=== PATIENT | male | born 1995 | race Caucasian/White ===

== ENCOUNTER 2017-07-02 01:04 | Emergency (ER) | payer MEDICAID ==
[2017-07-02 01:15] VITALS: BP 156/102
[2017-07-02] MEDS ORDERED: Alum Hydrox/Mag Hydrox/Simeth 30 ML, Lidocaine 2% 15 ML PO ONE ×2 (01:23)
--- NOTE | 2017-07-02 01:31 | EDM.PDOC ---
ED HPI GENERAL MEDICAL PROBLEM - General Chief Complaint: Abdominal Pain Stated Complaint: ABDOMINAL PAINS Time Seen by Provider: 07/02/17 01:20 - History of Present Illness INITIAL COMMENTS - FREE TEXT/NARRATIVE: 22-year-old male presents emergency room with abdominal pain. Patient has midepigastric discomfort that is quite severe at this time this is been getting worse over the last week but is really accelerated over the last several days. The patient is a recovering drug addict and has been drinking. He really thinks it's time for him to quit drinking he has not had any drinks today or this last evening. However his abdominal pain is getting worse he says that this pain has been on and off for the last several months but it has really escalated over the last week. He has not vomited any blood he has not had much nausea or vomiting often times however does have sour sensation in the back of his throat and feels like stuff is coming up from the stomach. The patient has not had any black or tarry stools no constipation or diarrhea. He denies fevers or chills Middle Abdomen Pain Score (Numeric/FACES): 5 - Related Data Allergies Allergy/AdvReac Type Severity Reaction Status Date / Time No Known Allergies Allergy Verified 02/03/17 07:18 Home Meds: Home Meds Pantoprazole Sodium [Protonix] 40 mg PO Q24H #30 tablet. 07/02/17 [Rx] Sucralfate [Carafate] 1 gm PO QIDACANDBED #28 tablet 07/02/17 [Rx] ED ROS GENERAL - Review of Systems Review Of Systems: See Below Constitutional: Reports: No Symptoms Respiratory: Reports: No Symptoms Cardiovascular: Reports: No Symptoms GI/Abdominal: Reports: Abdominal Pain. Denies: Black Stool, Bloody Stool, Constipation, Diarrhea, Nausea, Vomiting : Reports: No Symptoms ED EXAM, GI/ABD - Physical Exam Exam: See Below Exam Limited By: No Limitations General Appearance: Alert, No Apparent Distress, Other (The patient appears sober and is very cooperative at this time) Respiratory/Chest: No Respiratory Distress, Lungs Clear, Normal Breath Sounds Cardiovascular: Regular Rate, Rhythm, No Edema, No Murmur GI/Abdominal Exam: Normal Bowel Sounds, Soft, Other (Patient has marked epigastric discomfort no rebound or guarding noted no rigidity) Course - Vital Signs Last Recorded V/S: Last Vital Signs Temp 36.5 C 07/02/17 01:10 Pulse 97 07/02/17 01:10 Resp 18 07/02/17 01:10 BP 156/102 H 07/02/17 01:10 Pulse Ox 99 07/02/17 01:10 - Orders/Labs/Meds Orders: Active Orders 24 hr Category Date Time Status Pantoprazole [ProTONIX] Med 07/02/17 03:16 Once 40 mg PO ONETIME ONE Medication Orders Pantoprazole Sodium (Protonix) 40 mg PO ONETIME ONE Stop: 07/02/17 03:17 Meds: Medications Generic Name Dose Route Start Last Admin Trade Name Freq PRN Reason Stop Dose Admin Pantoprazole Sodium 40 mg 07/02/17 03:16 Protonix PO 07/02/17 03:17 ONETIME ONE Discontinued Medications Generic Name Dose Route Start Last Admin Trade Name Freq PRN Reason Stop Dose Admin Al Hydroxide/Mg Hydroxide 30 0 ml 07/02/17 01:23 07/02/17 01:27 ml/ Lidocaine HCl 15 ml PO 07/02/17 01:24 45 ml ONETIME ONE Administration Sucralfate 1 gm 07/02/17 01:52 07/02/17 01:56 Carafate PO 07/02/17 01:53 1 gm ONETIME ONE Administration - Re-Assessments/Exams Free Text/Narrative Re-Assessment/Exam: 07/02/17 03:06 Patient had significant improvement with the GI cocktail he had further improvement with Carafate. He will be treated with Protonix 40 mg. He will take a one-week course of Carafate and be started on PPI therapy. Departure - Departure Time of Disposition: 03:07 Disposition: Home, Self-Care 01 Clinical Impression: Gastroesophageal reflux disease, Dyspepsia - Discharge Information Prescriptions: Pantoprazole Sodium [Protonix] 40 mg PO Q24H #30 tablet. Sucralfate [Carafate] 1 gm PO QIDACANDBED #28 tablet Referrals: PCP,None [Primary Care Provider] - Forms: ED Department Discharge Additional Instructions: Return to the emergency room with any questions or problems worsening symptoms. Follow up in the Hospital clinic early this next week for recheck. [phone] Your started on 2 medications the first one is Protonix take one daily 60 minutes prior to your evening meal. The second medication is Carafate you will take this before each meal and at bedtime 4 times daily. Quit drinking it is tough on your overall health and well-being. - My Orders Last 24 Hours: My Active Orders 07/02/17 03:16 Pantoprazole [ProTONIX] 40 mg PO ONETIME ONE - Assessment/Plan Last 24 Hours: My Active Orders 07/02/17 03:16 Pantoprazole [ProTONIX] 40 mg PO ONETIME ONE
[2017-07-02] MEDS ORDERED: Sucralfate Suspension 1 GM/10 ML Cup PO ONE (01:52)
[2017-07-02] MEDS ORDERED: Pantoprazole 40 MG Tab.CR PO ONE (03:16)
== END 2017-07-02 03:22 | disposition home or self-care (01) ==
LOC: JD.ED 01:04
DX: K21.9 Gastro-esophageal reflux disease without esophagitis (principal)
CPT/HCPCS: 99283; A9270

== ENCOUNTER 2019-09-22 19:53 | Emergency (ER) | payer SELFPAY ==
[2019-09-22 20:12] VITALS: BP 130/70; PULSE 81
[2019-09-22] MEDS ORDERED: HYDROmorphone 0.5 MG/0.5 ML Syringe IM ONE (20:28)
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
--- NOTE | 2019-09-23 08:01 | CT ---
CT facial bones Technique: Multiple axial sections through the facial bones were obtained. Comparison: No previous study. Findings: Low density collection is seen which involves the left parapharyngeal space and floor of the mouth and then extends inferior and to the submandibular salivary gland. This causes significant mass effect upon the hypopharynx pushing it posteriorly and to the right side. Moderate mucosal thickening seen within the left frontal and ethmoid sinuses. Mucosal thickening with superimposed retention cysts are noted within both maxillary sinuses. Minimal mucosal thickening is seen within the sphenoid sinuses. No air-fluid levels are seen. No facial bone fracture is seen. Impression: 1. Low density collection within the left parapharyngeal region and floor of the mouth on the left side. This extends inferiorly and lateral to the submandibular salivary gland. 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 MRI with contrast could be obtained to confirm. 2. Chronic appearing sinus findings. 3. No acute bony abnormality is appreciated. Diagnostic code #3 I agree with preliminary report from [facility], finalized on 09/22/19, 10:15 PM Central Time
== END 2019-09-22 21:56 | disposition home or self-care (01) ==
LOC: JD.ED 19:53
DX: R22.0 Localized swelling, mass and lump, head (principal); F17.210 Nicotine dependence, cigarettes, uncomplicated; W01.198A Fall on same level from slipping, tripping and stumbling with subsequent striking against other object, initial encounter; Y04.0XXA Assault by unarmed brawl or fight, initial encounter
CPT/HCPCS: 70486; 96372; 99283; J1170

== ENCOUNTER 2019-12-03 14:21 | Emergency (ER) | payer OTHER ==
[2019-12-03 14:39] VITALS: BP 141/65; PULSE 70
[2019-12-03] MEDS ORDERED: Sodium Chloride 0.9% 10 ML Syringe FLUSH PRN (14:51)
[2019-12-03] MEDS ORDERED: Ondansetron 4 MG/2 ML SDV IVPUSH ONE (14:51)
[2019-12-03] MEDS ORDERED: Sodium Chloride 0.9% 1,000 ML IV SCH (15:00)
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
== END 2019-12-03 17:35 | disposition home or self-care (01) ==
LOC: JD.ED 14:21
DX: R11.2 Nausea with vomiting, unspecified (principal); F17.210 Nicotine dependence, cigarettes, uncomplicated
CPT/HCPCS: 36415; 80053; 81003; 83690; 85025; 96361; 96374; 99283; 99284-25; J2405; J7030

== ENCOUNTER 2020-05-30 18:14 | Emergency (ER) | payer SELFPAY ==
[2020-05-30 18:25] VITALS: PULSE 72
[2020-05-30] MEDS ORDERED: Alum Hydrox/Mag Hydrox/Simeth 30 ML, Lidocaine 2% 15 ML PO ONE ×2 (18:39)
--- NOTE | 2020-05-30 19:01 | EDM.PDOC ---
ED HPI GENERAL MEDICAL PROBLEM - General Chief Complaint: Abdominal Pain Stated Complaint: ABD PAIN Time Seen by Provider: 05/30/20 18:27 Source of Information: Reports: Patient History Limitations: Reports: No Limitations - History of Present Illness INITIAL COMMENTS - FREE TEXT/NARRATIVE: Patient is a 25-year-old male who presents to emergency department with complaints of upper abdominal pain for the last 4 days. He states he had problems with this pain since he was 14 years old. He describes it as a sharp, cramping pain that has been getting progressively worse over the last 4 days. He states he did take an [id number] antacid which did help the symptoms somewhat. He is not on a daily PPI or any other medications. He was seen in this emergency department approximately 3 years ago with similar symptoms. At that time he was started on Carafate and Protonix which she states worked well for him. He did not continue the Protonix beyond the 30 days however. He has had no nausea, vomiting, or diarrhea. His last bowel movement was approximately 2 days ago and it was normal. He states he has not been able to eat since then due to the pain. He has never had an EGD. Treatments OUTSIDE SOLAR SALES CONSULTANT: Reports: Other (see below) Other Treatments OUTSIDE SOLAR SALES CONSULTANT: OTC antacic Left Lower Abdominal Pain Score (Numeric/FACES): 2 - Related Data Allergies Allergy/AdvReac Type Severity Reaction Status Date / Time No Known Allergies Allergy Verified 05/30/20 18:25 Home Meds: Home Meds Ondansetron [Zofran ODT] 4 mg PO Q6H PRN #20 tab.dis 12/03/19 [Rx] Pantoprazole Sodium [Protonix] 40 mg PO DAILY #30 tablet. 05/30/20 [Rx] Sucralfate [Carafate] 1 gm PO QIDACANDBED #120 tablet 05/30/20 [Rx] Past Medical History Respiratory History: Reports: Sleep Apnea Gastrointestinal History: Reports: GERD Neurological History: Reports: Head Trauma Psychiatric History: Reports: ADHD Social & Family History - Tobacco Use Smoking Status *Q: Current Every Day Smoker Years of Tobacco use: 12 Packs/Tins Daily: 1 - Caffeine Use Caffeine Use: Reports: Coffee, Energy Drinks, Soda, Tea - Recreational Drug Use Recreational Drug Use: No Drug Use in Last 12 Months: No ED ROS GENERAL - Review of Systems Review Of Systems: Comprehensive ROS is negative, except as noted in HPI. ED EXAM, GI/ABD - Physical Exam Exam: See Below General Appearance: Alert, WD/WN, No Apparent Distress Respiratory/Chest: No Respiratory Distress, Lungs Clear, Normal Breath Sounds, No Accessory Muscle Use, Chest Non-Tender Cardiovascular: Normal Peripheral Pulses, Regular Rate, Rhythm, No Edema, No Gallop, No JVD, No Murmur, No Rub GI/Abdominal Exam: Normal Bowel Sounds, Soft, No Organomegaly, No Distention, No Abnormal Bruit, No Mass, Pelvis Stable, Tender (mid-epigastric) Extremities: Normal Inspection, Normal Range of Motion, Non-Tender, Normal Capillary Refill, No Pedal Edema Neurological: Alert, Oriented, CN II-XII Intact, Normal Cognition, Normal Gait, Normal Reflexes, No Motor/Sensory Deficits Psychiatric: Normal Affect, Normal Mood Skin Exam: Warm, Dry, Intact, Normal Color, No Rash Course - Vital Signs Last Recorded V/S: Last Vital Signs Temp 97.1 F 05/30/20 18:22 Pulse 72 05/30/20 18:22 Resp 18 05/30/20 18:22 BP Pulse Ox 98 05/30/20 18:22 - Orders/Labs/Meds Labs: Laboratory Tests 05/30/20 05/30/20 Range/Units 18:53 18:53 WBC 10.05 H (4.23-9.07) K/mm3 RBC 5.31 (4.63-6.08) M/mm3 Hgb 16.1 D (13.7-17.5) gm/dl Hct 46.8 (40.1-51.0) % MCV 88.1 (79.0-92.2) fl MCH 30.3 (25.7-32.2) pg MCHC 34.4 (32.2-35.5) g/dl RDW Std Deviation 42.3 (35.1-43.9) fL Plt Count 258 (163-337) K/mm3 MPV 9.7 (9.4-12.3) fl Neut % (Auto) 40.9 (34.0-67.9) % Lymph % (Auto) 45.7 (21.8-53.1) % [place] % (Auto) 10.6 (5.3-12.2) % Eos % (Auto) 0.9 (0.8-7.0) Baso % (Auto) 1.8 H (0.1-1.2) % Neut # (Auto) 4.11 (1.78-5.38) K/mm3 Lymph # (Auto) 4.59 H (1.32-3.57) K/mm3 [place] # (Auto) 1.07 H (0.30-0.82) K/mm3 Eos # (Auto) 0.09 (0.04-0.54) K/mm3 Baso # (Auto) 0.18 H (0.01-0.08) K/mm3 Manual Slide Review Sodium 138 (136-145) mEq/L Potassium 3.8 (3.5-5.1) mEq/L Chloride 99 (98-107) mEq/L Carbon Dioxide 27 (21-32) mEq/L Anion Gap 15.8 H (5-15) BUN 5 L (7-18) mg/dL Creatinine 0.9 (0.7-1.3) mg/dL Est Cr Clr Drug Dosing 118.75 mL/min Estimated GFR (MDRD) > 60 (>60) mL/min BUN/Creatinine Ratio 5.6 L (14-18) Glucose 103 (74-106) mg/dL Calcium 8.9 (8.5-10.1) mg/dL Total Bilirubin 0.7 (0.2-1.0) mg/dL AST 21 (15-37) U/L ALT 29 (16-63) U/L Alkaline Phosphatase 70 (46-116) U/L C-Reactive Protein 0.2 (<1.0) mg/dL Total Protein 7.4 (6.4-8.2) g/dl Albumin 3.7 (3.4-5.0) g/dl Globulin 3.7 gm/dL Albumin/Globulin Ratio 1.0 (1-2) Lipase 116 (73-393) U/L Meds: Medications Discontinued Medications Generic Name Dose Route Start Last Admin Trade Name Freq PRN Reason Stop Dose Admin Al Hydroxide/Mg Hydroxide 30 0 ml 05/30/20 18:39 05/30/20 18:53 ml/ Lidocaine HCl 15 ml PO 05/30/20 18:40 45 ml ONETIME ONE Administration Sucralfate 1 gm 05/30/20 19:24 05/30/20 19:33 Carafate PO 05/30/20 19:25 1 gm ONETIME ONE Administration - Re-Assessments/Exams Free Text/Narrative Re-Assessment/Exam: On exam, patient does have tenderness to the mid epigastric area. Has had no nausea vomiting or diarrhea. We will start with a GI cocktail. Of ordered CBC, CMP, CRP, lipase. 05/30/20 19:39 Patient has significant improvement after the GI cocktail. Hematology was grossly unremarkable. We will give him a Carafate here and then send a prescription for Carafate and Protonix to [facility] in [place]. Recommend that he establish care with a primary care provider for ongoing management. Discharge instructions as documented. Departure - Departure Time of Disposition: 19:40 Disposition: Home, Self-Care 01 Condition: Good Clinical Impression: Gastroesophageal reflux disease Qualifiers: Esophagitis presence: esophagitis presence not specified Qualified Code(s): K21.9 - Gastro-esophageal reflux disease without esophagitis - Discharge Information *PRESCRIPTION DRUG MONITORING PROGRAM REVIEWED*: No *COPY OF PRESCRIPTION DRUG MONITORING REPORT IN PATIENT ABDULLAHI: No Prescriptions: Sucralfate [Carafate] 1 gm PO QIDACANDBED #120 tablet Pantoprazole Sodium [Protonix] 40 mg PO DAILY #30 tablet.dr Instructions: Gastroesophageal Reflux Disease, Adult, [id number] Referrals: PCP,None [Primary Care Provider] - Forms: ED Department Discharge Additional Instructions: You were seen in the emergency department today for mid abdominal pain over the last 4 days. Blood work was done and found to be normal. While in the ER, you received a GI cocktail and Carafate which did resolve your symptoms. Based on this, it is like that you are suffering from gastroesophageal reflux disease. A prescription for Carafate and Protonix has been sent to [facility] and [place]. Take this medication as prescribed. Recommend that you establish care in the clinic with a primary care provider as you will likely benefit from being on a PPI long-term. If your symptoms were to worsen, please not hesitate to return to the emergency department. Sepsis Event Note (ED) - Evaluation Sepsis Screening Result: No Definite Risk - Focused Exam Vital Signs: Vital Signs Temp Pulse Resp Pulse Ox 05/30/20 18:22 97.1 F 72 18 98
[2020-05-30] MEDS ORDERED: Sucralfate 1 GM Tab PO ONE (19:24)
== END 2020-05-30 19:51 | disposition home or self-care (01) ==
LOC: JD.ED 18:14
DX: K21.9 Gastro-esophageal reflux disease without esophagitis (principal); F17.210 Nicotine dependence, cigarettes, uncomplicated; Z79.899 Other long term (current) drug therapy
CPT/HCPCS: 36415; 80053; 83690; 85025; 86140; 99284; A9270; 99283

== ENCOUNTER 2020-12-17 23:03 | Emergency (ER) | payer MEDICAID ==
[2020-12-17 23:22] VITALS: BP 146/93; PULSE 81
[2020-12-17] MEDS ORDERED: Amoxicillin 500 MG Cap PO ONE (23:35)
[2020-12-17] MEDS ORDERED: Acetaminophen/HYDROcodone 325-5 MG Tab PO ONE (23:36)
--- NOTE | 2020-12-17 23:40 | EDM.PDOC ---
ED HPI GENERAL MEDICAL PROBLEM - General Chief Complaint: ENT Problem Stated Complaint: TOOTHACHE Time Seen by Provider: 12/17/20 23:19 Source of Information: Reports: Patient, RN Notes Reviewed - History of Present Illness INITIAL COMMENTS - FREE TEXT/NARRATIVE: 25 yr old male with dental pain for several wks but much worse today R upper post jaw. No fever or chills. No noticeable swelling. Right Tooth/Teeth Pain Score (Numeric/FACES): 10 - Related Data Allergies Allergy/AdvReac Type Severity Reaction Status Date / Time No Known Allergies Allergy Verified 12/17/20 23:22 Home Meds: Home Meds Ondansetron [Zofran ODT] 4 mg PO Q6H PRN #20 tab.dis 12/03/19 [Rx] Pantoprazole Sodium [Protonix] 40 mg PO DAILY #30 tablet.dr 05/30/20 [Rx] Sucralfate [Carafate] 1 gm PO QIDACANDBED #120 tablet 05/30/20 [Rx] Acetaminophen/HYDROcodone [[place] 325-5 MG] 1 tab PO Q6H PRN #14 tablet 12/17/20 [Rx] Amoxicillin 500 mg PO QID #30 capsule 12/17/20 [Rx] Past Medical History Respiratory History: Reports: Sleep Apnea Gastrointestinal History: Reports: GERD Neurological History: Reports: Head Trauma Psychiatric History: Reports: ADHD Social & Family History - Tobacco Use Tobacco Use Status *Q: Current Every Day Tobacco User Years of Tobacco use: 10 Packs/Tins Daily: 0.5 - Caffeine Use Caffeine Use: Reports: Energy Drinks, Soda - Recreational Drug Use Recreational Drug Use: Yes Recreational Drug Type: Reports: Marijuana/Hashish ED ROS ENT - Review of Systems Review Of Systems: See Below Constitutional: Denies: Fever, Chills HEENT: Reports: Dental Pain Respiratory: Reports: No Symptoms Cardiovascular: Reports: No Symptoms GI/Abdominal: Reports: No Symptoms Musculoskeletal: Reports: No Symptoms Skin: Denies: Rash, Erythema Neurological: Reports: No Symptoms ED EXAM, ENT - Physical Exam Exam: See Below General Appearance: Alert, Mild Distress Mouth/Throat: Dental Pain (2 R upper post molars are fractured, tender, no visible swelling) Head: No: Facial Swelling Neck: Supple Respiratory/Chest: No Respiratory Distress Skin: Warm, Dry, Normal Color, No Rash Course - Vital Signs Last Recorded V/S: Last Vital Signs Temp 98.2 F 12/17/20 23:19 Pulse 81 12/17/20 23:19 Resp 18 12/17/20 23:19 BP 146/93 H 12/17/20 23:19 Pulse Ox 98 12/17/20 23:19 - Orders/Labs/Meds Meds: Medications Discontinued Medications Generic Name Dose Route Start Last Admin Trade Name Freq PRN Reason Stop Dose Admin Hydrocodone Bitart/Acetaminophen 1 tab 12/17/20 23:36 [place] 325-5 Mg PO 12/17/20 23:37 ONETIME ONE Amoxicillin 1,000 mg 12/17/20 23:35 Amoxil PO 12/17/20 23:36 ONETIME ONE Departure - Departure Time of Disposition: 23:44 Disposition: Home, Self-Care 01 Condition: Fair Clinical Impression: Pain, dental - Discharge Information Prescriptions: Amoxicillin 500 mg PO QID #30 capsule Acetaminophen/HYDROcodone [[place] 325-5 MG] 1 tab PO Q6H PRN #14 tablet PRN Reason: Pain Referrals: PCP,None [Primary Care Provider] - Forms: ED Department Discharge Additional Instructions: Amoxicillin 500 mg 4 times daily or 1000 mg twice daily for 1 week or until gone. Continue naprosyn 2 or 3 times daily. You may take tylenol in between doses for extra pain relief or hydrocodone if needed for severe pain. Prescriptions have been sent to [facility]. Do not drive when taking hydrocodone. See dentist as soon as possible. Sepsis Event Note (ED) - Evaluation Sepsis Screening Result: No Definite Risk - Focused Exam Vital Signs: Vital Signs Temp Pulse Resp BP Pulse Ox 12/17/20 23:19 98.2 F 81 18 146/93 H 98
== END 2020-12-17 23:56 | disposition home or self-care (01) ==
LOC: JD.ED 23:03
DX: K08.89 Other specified disorders of teeth and supporting structures (principal); K21.9 Gastro-esophageal reflux disease without esophagitis; Z72.0 Tobacco use; Z79.899 Other long term (current) drug therapy
CPT/HCPCS: 99282; A9270; 99283

== ENCOUNTER 2021-11-28 21:55 | Emergency (ER) | payer MEDICAID ==
--- NOTE | 2021-11-28 22:37 | EDM.PDOC ---
ED HPI GENERAL MEDICAL PROBLEM - General Chief Complaint: ENT Problem Stated Complaint: MOUTH SWOLLEN FROM TOOTH Time Seen by Provider: 11/28/21 22:07 Source of Information: Reports: Patient History Limitations: Reports: No Limitations - History of Present Illness INITIAL COMMENTS - FREE TEXT/NARRATIVE: Mr. Smith is a very pleasant 26-year-old gentleman who now presents to the ED with a large swelling to the lateral aspect of his left mandible/left neck that he states originated just over a year ago, in late September 2020. He states that the swelling has only been minimally painful until around 1630 this afternoon, when it increased both in size and pain. No recent injury. The patient states that he was seen in this ED in late September 2020, and that no work-up was performed, but that he was diagnosed with a dental infection and prescribed an antibiotic. He states that he was advised to follow-up with a dentist, which she did not. Review of prior medical records finds that the patient was last seen in this ED on 12/17/2020, for right upper dentalgia, and that he has never been seen in this ED for lower left dental pain or swelling. At triage clinic, patient's initial BP was found to be mildly elevated 147/87, with slight tachycardia of 105 bpm. He was afebrile, saturating 99% on room air. He appears to be relatively comfortable, in no acute distress. Other than the left mandible/neck swelling, the patient states that he has had mucus in his chest which he has been coughing up for about 1 week. Otherwise, the patient denies having a recent fever, chills, sore throat, ear pain, nasal or sinus congestion, dyspnea, chest pain, palpitations, nausea, vomiting, constipation, diarrhea, abdominal pain, urinary symptoms, recent weight gain or weight loss, recent bloody bowel movements or black bowel movements, recent joint aches, headaches, or rashes. The patient does not have a PCP or dentist. He has not received a COVID vaccination, nor an influenza vaccination this season. Left Jaw Pain Score (Numeric/FACES): 10 - Related Data Allergies Allergy/AdvReac Type Severity Reaction Status Date / Time No Known Allergies Allergy Verified 11/28/21 22:10 Home Meds: Home Meds Amoxicillin/Potassium Clav [Augmentin 875-125 Tablet] 1 tab PO Q12H #19 tablet 11/29/21 [Rx] Past Medical History Respiratory History: Reports: Sleep Apnea (untreated) Gastrointestinal History: Reports: GERD (untreated) Neurological History: Reports: Head Trauma Psychiatric History: Reports: ADHD (untreated) Social & Family History - Tobacco Use Tobacco Use Status *Q: Current Every Day Tobacco User Years of Tobacco use: 12 Packs/Tins Daily: 2.5 Tobacco Use Comment: Started smoking 2009 - Caffeine Use Caffeine Use: Reports: Coffee, Energy Drinks, Soda - Alcohol Use Alcohol Use History: Yes Date/Time of Last Drink Comment: Quit drinking Jul 2021 - Recreational Drug Use Recreational Drug Use: Yes Drug Use in Last 12 Months: Yes Recreational Drug Type: Reports: Marijuana/Hashish (smokes every other day), Methamphetamine (last smoked, injected Aug 2021) Recreational Drug Use Frequency: Socially - Living Situation & Occupation Living situation: Reports: Single, with Family Occupation: Employed (Construction) ED ROS ENT - Review of Systems Review Of Systems: Comprehensive ROS is negative, except as noted in HPI. ED EXAM, ENT - Physical Exam Exam: See Below Exam Limited By: No Limitations General Appearance: Alert, WD/WN, No Apparent Distress Eye Exam: Bilateral Eye: EOMI, Normal Inspection Ears: Normal External Exam, Normal Canal, Hearing Grossly Normal, Normal TMs Nose: Normal Inspection, Normal Mucousa, No Blood Mouth/Throat: Normal Inspection, Normal Gums, Normal Lips, Normal Oropharynx, Normal Teeth (All teeth present. No visible dental decay. No gingival swelling or pointing.) Head: Atraumatic, Normocephalic Neck: Other (Approximately 8 cm spherical mass extending from the inferior aspect of the left mandible onto the upper lateral neck. Somewhat fluctuant to palpation, with tenderness.) Respiratory/Chest: No Respiratory Distress, Lungs Clear, Normal Breath Sounds, No Accessory Muscle Use, Chest Non-Tender Cardiovascular: Normal Peripheral Pulses, Regular Rate, Rhythm, No Edema, No Gallop, No JVD, No Murmur, No Rub GI/Abdominal: Normal Bowel Sounds, Soft, Non-Tender, No Organomegaly, No Distention, No Abnormal Bruit, No Mass Back: Normal Inspection, Full Range of Motion Extremities: Normal Inspection, Normal Range of Motion, No Pedal Edema, Normal Capillary Refill Neurological: Alert, Oriented, Normal Cognition, No Motor/Sensory Deficits Psychiatric: Normal Affect Skin: Warm, Dry, Intact, Normal Color, No Rash Course - Vital Signs Last Recorded V/S: Last Vital Signs Temp 37.3 C 11/28/21 22:08 Pulse 105 H 11/28/21 22:08 Resp 19 11/28/21 22:08 BP 147/87 H 11/28/21 22:08 Pulse Ox 99 11/28/21 22:08 - Orders/Labs/Meds Orders: Active Orders 24 hr Category Date Time Status Soft Tissue Neck w Cont [CT] Stat Exams 11/28/21 22:32 Taken Sodium Chloride 0.9% [Normal Saline] 1,000 ml Med 11/28/21 22:45 Active IV ASDIRECTED Medication Orders Sodium Chloride (Normal Saline) 1,000 mls @ 150 mls/hr IV ASDIRECTED KIT Last Admin: 11/28/21 22:40 Dose: 150 mls/hr Documented by: RENITA Labs: Laboratory Tests 11/28/21 11/28/21 11/28/21 Range/Units 22:20 22:22 22:22 WBC 13.92 H (4.23-9.07) K/mm3 RBC 4.69 (4.63-6.08) M/mm3 Hgb 14.3 D (13.7-17.5) gm/dl Hct 42.3 (40.1-51.0) % MCV 90.2 (79.0-92.2) fl MCH 30.5 (25.7-32.2) pg MCHC 33.8 (32.2-35.5) g/dl RDW Std Deviation 44.0 H (35.1-43.9) fL Plt Count 261 (163-337) K/mm3 MPV 9.4 (9.4-12.3) fl Neutrophils % (Manual) 80 H (40-60) % Band Neutrophils % 0 (0-10) % Lymphocytes % (Manual) 17 L (20-40) % Atypical Lymphs % 0 % Monocytes % (Manual) 3 (2-10) % Eosinophils % (Manual) 0 L (0.8-7.0) % Basophils % (Manual) 0 L (0.2-1.2) Platelet Estimate Adequate RBC Morph Comment Normal Sodium 138 (136-145) mEq/L Potassium 4.0 (3.5-5.1) mEq/L Chloride 101 (98-107) mEq/L Carbon Dioxide 25 (21-32) mEq/L Anion Gap 16.0 H (5-15) BUN 19 H (7-18) mg/dL Creatinine 0.9 (0.7-1.3) mg/dL Est Cr Clr Drug Dosing 121.80 mL/min Estimated GFR (MDRD) > 60 (>60) mL/min BUN/Creatinine Ratio 21.1 H (14-18) Glucose 122 H (70-99) mg/dL Calcium 8.3 L (8.5-10.1) mg/dL Influenza Type A RNA Negative (NEGATIVE) Influenza Type B RNA Negative (NEGATIVE) SARS-CoV-2 RNA ([facility]) Negative (NEGATIVE) Meds: Medications Generic Name Dose Route Start Last Admin Trade Name Freq PRN Reason Stop Dose Admin Sodium Chloride 1,000 mls @ 150 mls/hr 11/28/21 22:45 11/28/21 22:40 Normal Saline IV 150 mls/hr ASDIRECTED KIT Administration - Re-Assessments/Exams Free Text/Narrative Re-Assessment/Exam: 11/28/21 22:33 A swab for the SARS-CoV-2 virus and influenza A + B viruses was ordered at triage. I have added some blood work and a CT of the soft tissues of the neck with IV contrast to evaluate. The patient will be given IV fluid. 11/28/21 23:24 The patient's CBC is remarkable for leukocytosis of 13.92, with the remainder of his CBC being unremarkable. His BMP is remarkable for a BUN slightly elevated at 19 with a Cr normal at 0.9, and mild hyperglycemia of 122, with the remainder of his BMP being unremarkable. His swab for the SARS-CoV-2 virus and influenza A + B viruses is negative for all. 11/29/21 00:01 CT of the soft tissues of the neck with IV contrast is read by [facility] as: Large left neck cystic lesion as described suspect for branchial cleft cyst. 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 The cystic lesion causing significant effacement of the left side of the oropharyngeal airway. ENT assessment recommended 11/29/21 00:21 CT images pushed to [facility] at 00:05. Case discussed with Lorraine at [facility] at 00:09. Case then discussed with Dr. Noah Albarado, [facility] on-call at [facility] at 00:15. He felt that treatment with antibiotics was reasonable, but not obligatory. He would like to see the patient in his office this coming week. If the patient develops a change in his voice, he is to return to the ED for reevaluation. 11/29/21 00:25 Test results and my conversation with Dr. Albarado discussed with the patient. He will be started on Augmentin here in the ED, and I will submit a prescription that he can fill in the morning. Departure - Departure Time of Disposition: 00:26 Disposition: Home, Self-Care 01 Condition: Good Clinical Impression: Branchial cleft cyst - Discharge Information *PRESCRIPTION DRUG MONITORING PROGRAM REVIEWED*: Not Applicable *COPY OF PRESCRIPTION DRUG MONITORING REPORT IN PATIENT ABDULLAHI: Not Applicable Referrals: PCP,None [Primary Care Provider] - Noah Albarado MD [Ordering Only Provider] - Forms: ED Department Discharge Additional Instructions: You were seen in the emergency room for under your left jaw and onto the left side of your neck for more than 1 year. Work-up in the ER included some blood work, a swab for the SARS-CoV-2 virus and influenza A + B viruses, and a CT of the soft tissues of your neck with IV contrast. The CT scan found that you have a branchial cleft cyst, which could be infected. You have been started on the antibiotic Augmentin, and a prescription for Augmentin [facility] across the street from the hospital. Take 1 tablet of Augmentin every 12 hours starting this morning, 11/29/2021, as prescribed. Finish the entire prescription unless told otherwise by a doctor. Please follow-up with the [facility] (ENT) Dr. Noah Albarado, in [place], at the next available appointment. Make sure that the studio receptionist understands that you are following up from the ER, and that Dr. Albarado would like to see you this coming week. If you develop any significant changes in your condition, including changes in your voice, please do not hesitate to return to the ER for reevaluation. Sepsis Event Note (ED) - Focused Exam Vital Signs: Vital Signs Temp Pulse Resp BP Pulse Ox 11/28/21 22:08 37.3 C 105 H 19 147/87 H 99 - My Orders Last 24 Hours: My Active Orders 11/28/21 22:32 Soft Tissue Neck w Cont [CT] Stat 11/28/21 22:45 Sodium Chloride 0.9% [Normal Saline] 1,000 ml IV ASDIRECTED - Assessment/Plan Last 24 Hours: My Active Orders 11/28/21 22:32 Soft Tissue Neck w Cont [CT] Stat 11/28/21 22:45 Sodium Chloride 0.9% [Normal Saline] 1,000 ml IV ASDIRECTED
[2021-11-28] MEDS ORDERED: Sodium Chloride 0.9% 1,000 ML IV SCH (22:45)
[2021-11-28 23:23] LABS: CORONAVIRUS COVID-19 NAA NEGATIVE (NEGATIVE)
[2021-11-29] MEDS ORDERED: Amoxicillin/Clavulanate K 875-125 MG Tab PO STA (00:20)
[2021-11-29 00:22] VITALS: BP 130/84; PULSE 102
--- NOTE | 2021-11-29 08:44 | CT ---
CT neck Technique: Multiple axial sections were obtained from slightly above the external auditory canals inferiorly to the lung apices. Intravenous contrast was utilized. Reconstructed coronal and sagittal images were obtained. Comparison: Prior CT facial bones of 09/22/19. Findings: Bilobed cystic change is noted within the left neck which occurs anterior to the sternocleidomastoid muscle and pushes it posteriorly. This then extends around the angle of the mandible into the parapharyngeal region which is anterior to the vascular sheath. Superficial component of this lesion measures approximately 6.3 x 3.4 cm. Parapharyngeal portion of this lesion measures 2.8 cm x 1.8 cm. This finding is most likely due to a second branchial cleft cyst which was thought to be a diving ranula on prior facial bone exam and is felt not to be the case on the current CT study. The above finding shows a slightly thickened wall with surrounding inflammatory change seen within the subcutaneous fat and has also increased in size along the superficial aspect from prior study. Finding causes displacement of the oropharyngeal airway to the right side and is most likely infected. Parapharyngeal soft tissues are otherwise normal. Epiglottis is normal. Retention cysts are seen within the maxillary sinuses. No adenopathy is seen. Parotid salivary gland and submandibular salivary glands are intact. Left submandibular salivary gland is displaced anteriorly. Visualized lung apices are clear. No acute osseous abnormality is appreciated. Possible dental caries are present. Impression: 1. 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 Superficial component is seen as well as extension around the posterior mandible with a parapharyngeal component. Parapharyngeal component causes mass-effect upon the oropharyngeal airway pushing it to the right side. This finding has increased in size from previous facial bone exam. 2. Inflammatory change is seen within the adjacent subcutaneous fat as well as mild thickening of the wall of this finding. These findings are suspicious for infection. 3. Incidental retention cysts within both maxillary sinuses. 4. Probable dental caries are present. Diagnostic code #3 I agree with preliminary report from [facility], finalized on 11/29/21, 12:52 AM DAYTIME CAREGIVER, code 1
== END 2021-11-29 00:43 | disposition home or self-care (01) ==
LOC: JD.ED 21:55
DX: Q18.0 Sinus, fistula and cyst of branchial cleft (principal); K21.9 Gastro-esophageal reflux disease without esophagitis; Z72.0 Tobacco use; Z20.822 Contact with and (suspected) exposure to COVID-19
CPT/HCPCS: 0240U; 36415; 70491; 80048; 85007; 85027; 99284; A9270; J7030

== ENCOUNTER 2022-02-05 08:09 | Emergency (ER) | payer MEDICAID ==
[2022-02-05 08:17] VITALS: BP 163/120; PULSE 73
[2022-02-05] MEDS ORDERED: Ondansetron 4 MG Tab.DIS PO ONE (08:24)
[2022-02-05] MEDS ORDERED: Acetaminophen/oxyCODONE 325-5 MG Tab PO ONE (08:24)
== END 2022-02-05 08:55 | disposition home or self-care (01) ==
LOC: JD.ED 08:09
DX: S02.5XXA Fracture of tooth (traumatic), initial encounter for closed fracture (principal); K04.7 Periapical abscess without sinus; Z72.0 Tobacco use
CPT/HCPCS: 99282; A9270; 99283

== ENCOUNTER 2022-07-24 16:50 | Emergency (ER) | payer MEDICAID ==
[2022-07-24 17:15] VITALS: BP 116/59; PULSE 98
== END 2022-07-24 18:40 | disposition home or self-care (01) ==
LOC: JD.ED 16:50
DX: M79.602 Pain in left arm (principal); F17.210 Nicotine dependence, cigarettes, uncomplicated
CPT/HCPCS: 73030-26-LT; 73030-LT; 73130-26-LT; 73130-LT; 99283

== ENCOUNTER 2023-01-04 15:30 | Emergency (ER) | payer MEDICAID ==
[2023-01-04] MEDS ORDERED: Ketorolac 60 MG/2 ML SDV IM ONE (16:04)
[2023-01-04] MEDS ORDERED: Amoxicillin/Clavulanate K 875-125 MG Tab PO ONE (16:05)
[2023-01-04 16:28] VITALS: BP 138/77
[2023-01-04 16:42] VITALS: PULSE 100
== END 2023-01-04 16:23 | disposition home or self-care (01) ==
LOC: JD.ED 15:30
DX: K08.89 Other specified disorders of teeth and supporting structures (principal); K21.9 Gastro-esophageal reflux disease without esophagitis; Z72.0 Tobacco use
CPT/HCPCS: 96372; 99282; A9270; J1885

== ENCOUNTER 2023-03-31 18:43 | Emergency (ER) | payer MEDICAID ==
[2023-03-31 19:39] VITALS: BP 124/91; PULSE 93
[2023-03-31] MEDS ORDERED: Acetaminophen/HYDROcodone 325-5 MG Tab PO ONE (22:30)
== END 2023-03-31 22:45 | disposition home or self-care (01) ==
LOC: JD.ED 18:43
DX: K02.9 Dental caries, unspecified (principal); Z72.0 Tobacco use
CPT/HCPCS: 70486; 99283; A9270; 99282

== ENCOUNTER 2023-06-20 19:52 | Emergency (ER) | payer SELFPAY ==
[2023-06-21 01:28] VITALS: BP 115/84; PULSE 74
== END 2023-06-20 22:16 | disposition home or self-care (01) ==
LOC: JD.ED 19:52
DX: K04.7 Periapical abscess without sinus (principal); F17.210 Nicotine dependence, cigarettes, uncomplicated
CPT/HCPCS: 70486; 70486-26; 99282; 99283